=== PATIENT | female | born 1995 | race African-American/Black ===

== ENCOUNTER 2024-03-15 14:59 | Emergency (ER) | payer OTHER | END 2024-03-15 18:15 | disposition home or self-care (01) | LOC: CSHERS 14:59 | DX: J18.9 Pneumonia, unspecified organism (principal); J02.9 Acute pharyngitis, unspecified | CPT/HCPCS: 71045; 87428; 93005 ==

== ENCOUNTER 2024-05-07 12:43 | Emergency (ER) | payer OTHER, SELFPAY ==
[2024-05-07 13:11] LABS: #Basophils Less than 0.03 10x3/uL (0.0-0.2); #Eosinophils 0.08 10x3/uL (0.0-0.5); #Monocytes 0.44 10x3/uL (0.0-1.1); #Neutrophils 3.14 10x3/uL (1.5-8.4); %Basophils 0.3 % (0.0-2.0); %Eosinophils 1.2 % (0.0-6.0); %Lymphocytes 46.8 % (18.0-47.0); %Monocytes 6.3 % (0.0-10.0); %Neutrophils 45.3 % (40.0-75.0); Hematocrit 41.4 % (34.9-44.5); Hemoglobin 13.6 g/dL (12.0-15.5); Mean Corpuscular HGB CONC 32.9 g/dL (32.0-36.0); Mean Corpuscular Hemoglobin 27.1 pg (27.0-33.0); Mean Corpuscular Volume 82.6 fL (81.6-98.3); Mean Platelet Volume 9.8 fL (7.4-10.4); Platelet Count 387 10x3/uL (150-450); RBC Distribution Width 13.2 % (11.5-14.5); Red Blood Cell (RBC) Count 5.01 10x6/uL (3.90-5.03); White Blood Cell (WBC) Count 6.93 10x3/uL (3.5-10.5)
[2024-05-07 13:28] LABS: Anion Gap 11 mmol/L (10-20); BUN (Urea Nitrogen) 10 mg/dL (7.0-18.7); Calc. Creatinine Clearance 0 mL/min (70-130); Calcium 9.6 mg/dL (7.8-10.44); Carbon Dioxide 24 mmol/L (22-29); Chloride 107 mmol/L (98-107); Estimated GFR 113; Glucose 85 mg/dL (70-105); Lipase 12 U/L (8-78); Potassium 3.9 mmol/L (3.5-5.1); Sodium 138 mmol/L (136-145)
[2024-05-07] MEDS ORDERED: Ondansetron ODT 4 MG TAB ONE (13:49)
[2024-05-07] MEDS ORDERED: Acetaminophen 325 MG TAB ONE (13:49)
[2024-05-07] MEDS ORDERED: Dicyclomine 20 MG TAB ONE (13:49)
[2024-05-07] MEDS ORDERED: Ketorolac Tromethamine 30 MG (1 mL) VIAL ONE (14:30)
[2024-05-07] MEDS ORDERED: Ondansetron PF 4 MG/2 ML Vial ONE (14:30)
[2024-05-07] MEDS ORDERED: Famotidine/PF 20 mg/2ml Vial ONE (14:30)
[2024-05-07 14:39] LABS: ALT (SGPT) 9 U/L (Less than 34); AST (SGOT) 16 U/L (11-34); Albumin 3.8 g/dL (3.1-4.5); Alkaline Phosphatase 47 U/L (40-110); Bilirubin, Total 0.5 mg/dL (0.3-1.2); Globulin 3.6 g/dL (2.4-3.5); Protein, Total 7.4 g/dL (6.0-8.3)
[2024-05-07] MEDS ORDERED: Metoclopramide HCl 10 MG (2 mL) VIAL ONE (16:05)
== END 2024-05-07 17:27 | disposition home or self-care (01) ==
LOC: CSHERS 12:43
DX: R11.2 Nausea with vomiting, unspecified (principal)
CPT/HCPCS: 36415; 83690; 85025; 96374; 96375; J1885; J2405; J2765; J3490; Q0162